=== PATIENT | male | born 1995 | race African-American/Black ===

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

== ENCOUNTER 2017-11-20 02:07 | Emergency (ER) | payer SELFPAY ==
[~2017-11-20] VITALS: Ht 166.4 cm; Wt 79.4 kg
[~2017-11-20 02:07] MED LIST changes: +FAMO-63 PO
[2017-11-20] MEDS ORDERED: PROAIR HFA8.5 GM INH (03:28)
[2017-11-20] MEDS ORDERED: PRED20TA PO (03:28)
--- NOTE | 2017-11-20 03:29 | PHYS DOC ---
Past Medical History Past Medical History: Asthma Past Surgical History: Other Additional Past Surgical Histo: R wrist frx repair Alcohol Use: None Drug Use: None Adult General Chief Complaint Chief Complaint: Congestion HPI HPI 22-year-old male presents the emergency department with a chief complaint of cough. He states that yesterday in the middle of the day he started to have nasal congestion, dry cough. Today he states that he has a wheeze and is having asthma exacerbation. He states that he has a long history of asthma and multiple previous identical episodes of asthma exacerbation such as this. He denies any fevers. He denies any vomiting, abdominal pain. He denies any chest pain. He states that he feels as though his chest is congested. Review of Systems Review of Systems Constitutional: Denies fever Eyes: Denies change in visual acuity, redness, or eye pain Cardiovascular: No additional information not addressed in HPI GI: Denies abdominal pain, nausea, vomiting, bloody stools or diarrhea : Denies dysuria or hematuria Musculoskeletal: Denies back pain or joint pain Integument: Denies rash or skin lesions Neurologic: Denies headache, focal weakness or sensory changes Endocrine: Denies polyuria or polydipsia All other systems were reviewed and found to be within normal limits, except as documented in this note. Allergies Allergies Allergies Coded Allergies Type Severity Reaction Last Updated Verified No Known Drug Allergies 10/30/16 No Physical Exam Physical Exam GENERAL: Awake, alert, no acute distress HEAD/EYES: Normocephalic, EOMI ENT Airway patent, mucous membranes moist NECK: Supple, no meningismus, no swelling RESP: No respiratory distress, symmetrical expansion, bilateral end expiratory wheezing CV: Normal peripheral perfusion ABD/GI: Non distended SKIN: Warm, dry NEURO: Normal motor observed PSYCH: Cooperative, appropriate affect Current Patient Data Vital Signs Vital Signs Date Time Temp Pulse Resp B/P (MAP) Pulse Ox O2 Delivery O2 Flow Rate FiO2 11/20/17 02:30 98.8 83 20 116/68 (84) 97 Room Air 98.8 EKG EKG [] Radiology/Procedures Radiology/Procedures [] Impressions: Acute asthma exacerbation Seasonal allergies Course & Med Decision Making Course & Med Decision Making Pertinent Labs and Imaging studies reviewed. (See chart for details) [] Dragon Disclaimer Dragon Disclaimer This electronic medical record was generated, in whole or in part, using a voice recognition dictation system. Departure Departure Impression: Primary Impression: Acute asthma exacerbation Disposition: HOME, SELF-CARE Referrals: NO PCP (PCP) Patient Instructions: Asthma, Acute Bronchospasm Additional Instructions: SEE PRIMARY CARE DOCTOR LIST PROVIDED AND ESTABLISH WITH PRIMARY CARE DOCTOR Scripts Albuterol Sulfate (PROAIR HFA INHALER) 8.5 Gm Hfa.aer.ad 2 PUFF INH PRN Q6HRS PRN for SHORTNESS OF BREATH for 30 Days, #1 INHALER 0 Refills Prov: ISAIAS YANG DO 11/20/17 Prednisone (PREDNISONE) 20 Mg Tablet 20 MG PO DAILY for 5 Days, #5 TAB Prov: ISAIAS YANG DO 11/20/17 ISAIAS YANG DO Nov 20, 2017 03:29
[2017-11-20] MEDS: predniSONE 10 MG TABLET PO ONE (03:46)
[2017-11-20 03:57] VITALS: BP 119/63
[2017-11-20] MEDS: IPRATRPIUM/ALBUTEROL 0.5/2.5MG 3 ML NEBU. NEB ONE (04:00)
== END 2017-11-20 04:22 | disposition home or self-care (01) ==
LOC: ER 02:07
DX: J45.901 Unspecified asthma with (acute) exacerbation (principal)
CPT/HCPCS: 94640; 99283; J7512; J7620

== ENCOUNTER 2018-05-29 19:48 | Emergency (ER) | payer SELFPAY ==
[~2018-05-29] VITALS: Ht 167.6 cm; Wt 89.8 kg
[2018-05-29 19:48] VITALS: BP 129/60
[~2018-05-29 19:48] MED LIST changes: +ALBU2.5V8 INH; +PRED20TA PO
[2018-05-29 21:02] LABS: BILIRUBIN,URINE NEGATIVE (NEG); CLARITY,URINE CLEAR; COLOR,URINE YELLOW; NITRITE,URINE NEGATIVE (NEG); PROTEIN,URINE NEGATIVE (NEG-TRACE)
[2018-05-29 21:07] LABS: BACTERIA,URINE 0 /HPF (0-FEW); RBC,URINE 0 /HPF (0-2); SQUAMOUS EPITHELIAL CELL,UR FEW /LPF; WBC,URINE OCC /HPF (0-4)
[2018-05-29] MEDS: cefTRIAXone IM 250 MG VIAL IM ONE (21:36)
[2018-05-29] MEDS: AZITHROMYCIN 250 MG TABLET. PO ONE (21:36)
[2018-05-29] MEDS: metroNIDAZOLE 500 MG TABLET PO ONE (21:37)
--- NOTE | 2018-05-29 22:00 | PHYS DOC ---
Past Medical History Past Medical History: No Pertinent History, Asthma Past Surgical History: Other Additional Past Surgical Histo: R wrist frx repair Alcohol Use: None Drug Use: None Adult General Chief Complaint Chief Complaint: SEXUALLY TRANSMITTED DISEASE HPI HPI Patient is a 22 year old male who presents with STD concerns, patient states his had dysuria and yellow drainage from his penis for couple days. He would like to be treated. He was also complaining of his penis peeling off, I requested to evaluate the area, he declined. Review of Systems Review of Systems Constitutional: Denies fever or chills [] GI: Denies abdominal pain, nausea, vomiting, bloody stools or diarrhea [] : Reports dysuria, yellow discharge, concern for STDs, penile peeling, denies hematuria [] Musculoskeletal: Denies back pain or joint pain [] Integument: Denies rash or skin lesions [] Neurologic: Denies headache, focal weakness or sensory changes [] All other systems were reviewed and found to be within normal limits, except as documented in this note. Current Medications Current Medications Current Medications Medications (Trade) Dose Ordered Sig/Lucho Start Time Stop Time Status Last Admin Dose Admin Azithromycin (Zithromax) 1,000 mg 1X ONCE 05/29/18 21:00 05/29/18 21:01 DC 05/29/18 21:36 1,000 MG Ceftriaxone Sodium (Rocephin Im) 250 mg 1X ONCE 05/29/18 21:00 05/29/18 21:01 DC 05/29/18 21:36 250 MG Metronidazole (Flagyl) 2,000 mg 1X ONCE 05/29/18 21:00 05/29/18 21:01 DC 05/29/18 21:37 2,000 MG Allergies Allergies Allergies Coded Allergies Type Severity Reaction Last Updated Verified No Known Drug Allergies 10/30/16 No Physical Exam Physical Exam Constitutional: Well developed, well nourished, no acute distress, non-toxic appearance. [] Abdomen: Bowel sounds normal, soft, no tenderness, no masses, no pulsatile masses. [] male -deferred. Skin: Warm, dry, no erythema, no rash. [] Back: No tenderness, no CVA tenderness. [] Extremities: No tenderness, no cyanosis, no clubbing, ROM intact, no edema. [] Neurologic: Alert and oriented X 3, normal motor function, normal sensory function, no focal deficits noted. [] Psychologic: Affect normal, judgement normal, mood normal. [] Current Patient Data Vital Signs Vital Signs Date Time Temp Pulse Resp B/P (MAP) Pulse Ox O2 Delivery O2 Flow Rate FiO2 05/29/18 19:48 98.7 69 16 129/60 (83) 98 Room Air 98.7 Lab Values Laboratory Tests Test 05/29/18 20:49 Urine Collection Type Unknown Urine Color Yellow Urine Clarity Clear Urine pH 6.0 Urine Specific [place] >=1.030 Urine Protein Negative mg/dL (NEG-TRACE) Urine Glucose (UA) Negative mg/dL (NEG) Urine Ketones (Stick) Trace mg/dL (NEG) Urine Blood Negative (NEG) Urine Nitrite Negative (NEG) Urine Bilirubin Negative (NEG) Urine Urobilinogen Dipstick 1.0 mg/dL (0.2 mg/dL) Urine Leukocyte Esterase Negative (NEG) Urine RBC 0 /HPF (0-2) Urine WBC Occ /HPF (0-4) Urine Squamous Epithelial Cells Few /LPF Urine Bacteria 0 /HPF (0-FEW) Urine Mucus Marked /LPF EKG EKG [] Radiology/Procedures Radiology/Procedures [] Course & Med Decision Making Course & Med Decision Making Pertinent Labs and Imaging studies reviewed. (See chart for details) This is a 22-year-old male patient presenting to the ED today with STD concerns. Patient was treated prophylaxis. Education provided. Dragon Disclaimer Dragon Disclaimer This electronic medical record was generated, in whole or in part, using a voice recognition dictation system. Departure Departure Impression: Primary Impression: Concern about STD in male without diagnosis Disposition: 01 HOME, SELF-CARE Condition: STABLE Referrals: NO PCP (PCP) Follow-up with your doctor in 1-2 weeks as needed Patient Instructions: Sexually Transmitted Disease Additional Instructions: You were treated prophylaxis for sexually transmitted diseases, please do not have sex for one week, use protection after that, contact all your sex partners , let them know you were treated for STDs and ask them to seek treatment too JACK SAMS APRN May 29, 2018 22:00
== END 2018-05-29 22:25 | disposition home or self-care (01) ==
LOC: ER 19:48
DX: N48.89 Other specified disorders of penis (principal); R30.0 Dysuria; Z20.2 Contact with and (suspected) exposure to infections with a predominantly sexual mode of transmission; J45.909 Unspecified asthma, uncomplicated
CPT/HCPCS: 81001; 96372; 99283; J0696; Q0144; 87491; 87591

== ENCOUNTER 2018-05-31 20:13 | Emergency (ER) | payer SELFPAY ==
[~2018-05-31] VITALS: Ht 165.1 cm; Wt 79.4 kg
[2018-05-31 20:43] LABS: BILIRUBIN,URINE NEGATIVE (NEG); CLARITY,URINE CLEAR; COLOR,URINE YELLOW; NITRITE,URINE NEGATIVE (NEG); PH,URINE 5.5; PROTEIN,URINE NEGATIVE (NEG-TRACE); UROBILINOGEN,URINE 0.2 mg/dL (0.2 mg/dL)
[2018-05-31 20:45] VITALS: BP 125/66
[2018-05-31 20:50] LABS: BACTERIA,URINE 0 /HPF (0-FEW); RBC,URINE 0 /HPF (0-2); SQUAMOUS EPITHELIAL CELL,UR FEW /LPF; WBC,URINE 0 /HPF (0-4)
[2018-05-31] MEDS ORDERED: fentaNYL PF VIAL 100 MCG/2 ML VIAL IV ONE (21:45)
[2018-05-31] MEDS ORDERED: ONDANSETRON PF 4 MG/2 ML VIAL. IV ONE (21:45)
[2018-05-31] MEDS ORDERED: IV NORMAL SALINE 1000ML BAG 1,000 ML IV SCH (21:45)
[2018-05-31 22:10] LABS: BASO % 0 % (0-3); EOS # 0.1 x10^3/uL (0.0-0.7); EOS % 2 % (0-3); HEMATOCRIT 44.1 % (39.0-53.0); HEMOGLOBIN 15.2 g/dL (13.0-17.5); LYMPH # 1.5 x10^3/uL (1.0-4.8); LYMPH % 18 % (24-48); MEAN CORPUSCULAR HEMOGLOBIN 29 pg (25-35); MEAN CORPUSCULAR HGB CONC 35 g/dL (31-37); MEAN CORPUSCULAR VOLUME 85 fL (79-100); MONO # 0.8 x10^3/uL (0.0-1.1); MONO % 9 % (0-9); NEUT # 6.3 x10^3uL (1.8-7.7); NEUT % 71 % (31-73); PLATELET COUNT 249 x10^3/uL (140-400); RED BLOOD COUNT 5.19 x10^6/uL (4.30-5.70); RED CELL DISTRIBUTION WIDTH 13.7 % (11.5-14.5); WHITE BLOOD COUNT 8.8 x10^3/uL (4.0-11.0)
[2018-05-31 22:18] LABS: CALCIUM 9.2 mg/dL (8.5-10.1); CREATININE 1.1 mg/dL (0.7-1.3); GFR 103.3; POTASSIUM 3.7 mmol/L (3.5-5.1)
[2018-05-31 22:25] LABS: TOTAL BILIRUBIN 0.6 mg/dL (0.2-1.0)
[2018-05-31 22:27] LABS: INFLUENZA A PATIENT NEGATIVE (NEGATIVE); INFLUENZA B PATIENT NEGATIVE (NEGATIVE)
[2018-05-31] MEDS ORDERED: ONDA4TAB12 PO (22:47)
--- NOTE | 2018-05-31 22:47 | PHYS DOC ---
Past Medical History Past Medical History: No Pertinent History, Asthma (SOLIS TOMLINSON APRN) Past Surgical History: Other Additional Past Surgical Histo: R wrist frx repair (SOLIS TOMLINSON APRN) Alcohol Use: None Drug Use: None (SOLIS TOMLINSON APRN) Adult General Chief Complaint Chief Complaint: ABDOMINAL PAIN HPI HPI Patient is a 22 year old male who presents with eye Last night and began vomiting that started early this morning. Patient states he does have a cough that also will cause him to gag and vomit. Patient is vomiting up bile. Patient denies pain at this time but states every now and then he does have cramping that comes and goes in his abdomen. Patient states the cramping is in his epigastric area. Patient currently rates his pain a 0 out of 10. (SOLIS TOMLINSON APRN) Review of Systems Review of Systems Constitutional: Denies fever or chills [] Eyes: Denies change in visual acuity, redness, or eye pain [] HENT: Denies nasal congestion or sore throat [] Respiratory: Denies cough or shortness of breath [] Cardiovascular: No additional information not addressed in HPI [] GI: epigastric abdominal pain, nausea, vomiting, denies bloody stools or diarrhea [] : Denies dysuria or hematuria [] Musculoskeletal: Denies back pain or joint pain [] Integument: Denies rash or skin lesions [] Neurologic: Denies headache, focal weakness or sensory changes [] All other systems were reviewed and found to be within normal limits, except as documented in this note. (SOLIS TOMLINSON APRN) Current Medications Current Medications Current Medications Medications (Trade) Dose Ordered Sig/Lucho Start Time Stop Time Status Last Admin Dose Admin Fentanyl Citrate (Fentanyl 2ml Vial) 50 mcg 1X ONCE 05/31/18 21:45 05/31/18 21:46 DC 05/31/18 22:13 50 MCG Ondansetron HCl (Zofran) 4 mg 1X ONCE 05/31/18 21:45 05/31/18 21:46 DC 05/31/18 22:13 4 MG Sodium Chloride 1,000 ml @ 1,000 mls/hr Q1H 05/31/18 21:45 05/31/18 22:44 DC 05/31/18 22:11 1,000 MLS/HR (BIANCA REYNOSO MD) Allergies Allergies Allergies Coded Allergies Type Severity Reaction Last Updated Verified No Known Drug Allergies 10/30/16 No (BIANCA REYNOSO MD) Physical Exam Physical Exam Constitutional: Well developed, well nourished, no acute distress, non-toxic appearance. [] HENT: Normocephalic, atraumatic, bilateral external ears normal, oropharynx moist, no oral exudates, nose normal. [] Eyes: PERRLA, EOMI, conjunctiva normal, no discharge. [] Neck: Normal range of motion, no tenderness, supple, no stridor. [] Cardiovascular:Heart rate regular rhythm, no murmur [] Lungs & Thorax: Bilateral breath sounds clear to auscultation [] Abdomen: Bowel sounds normal, soft, no tenderness, no masses, no pulsatile masses. [] Skin: Warm, dry, no erythema, no rash. [] Back: No tenderness, no CVA tenderness. [] Extremities: No tenderness, no cyanosis, no clubbing, ROM intact, no edema. [] Neurologic: Alert and oriented X 3, normal motor function, normal sensory function, no focal deficits noted. [] Psychologic: Affect normal, judgement normal, mood normal. Normal Physical exam[] (SOLIS TOMLINSON APRN) Current Patient Data Vital Signs Vital Signs Date Time Temp Pulse Resp B/P (MAP) Pulse Ox O2 Delivery O2 Flow Rate FiO2 05/31/18 23:00 52 16 100 Room Air 05/31/18 21:15 05/31/18 20:45 98.3 98.3 (BIANCA REYNOSO MD) Lab Values Laboratory Tests Test 05/31/18 20:20 05/31/18 22:00 Urine Collection Type Unknown Urine Color Yellow Urine Clarity Clear Urine pH 5.5 Urine Specific [place] >=1.030 Urine Protein Negative mg/dL (NEG-TRACE) Urine Glucose (UA) Negative mg/dL (NEG) Urine Ketones (Stick) Negative mg/dL (NEG) Urine Blood Negative (NEG) Urine Nitrite Negative (NEG) Urine Bilirubin Negative (NEG) Urine Urobilinogen Dipstick 0.2 mg/dL (0.2 mg/dL) Urine Leukocyte Esterase Negative (NEG) Urine RBC 0 /HPF (0-2) Urine WBC 0 /HPF (0-4) Urine Squamous Epithelial Cells Few /LPF Urine Bacteria 0 /HPF (0-FEW) Urine Mucus Marked /LPF White Blood Count 8.8 x10^3/uL (4.0-11.0) Red Blood Count 5.19 x10^6/uL (4.30-5.70) Hemoglobin 15.2 g/dL (13.0-17.5) Hematocrit 44.1 % (39.0-53.0) Mean Corpuscular Volume 85 fL (79-100) Mean Corpuscular Hemoglobin 29 pg (25-35) Mean Corpuscular Hemoglobin Concent 35 g/dL (31-37) Red Cell Distribution Width 13.7 % (11.5-14.5) Platelet Count 249 x10^3/uL (140-400) Neutrophils (%) (Auto) 71 % (31-73) Lymphocytes (%) (Auto) 18 % (24-48) L Monocytes (%) (Auto) 9 % (0-9) Eosinophils (%) (Auto) 2 % (0-3) Basophils (%) (Auto) 0 % (0-3) Neutrophils # (Auto) 6.3 x10^3uL (1.8-7.7) Lymphocytes # (Auto) 1.5 x10^3/uL (1.0-4.8) Monocytes # (Auto) 0.8 x10^3/uL (0.0-1.1) Eosinophils # (Auto) 0.1 x10^3/uL (0.0-0.7) Basophils # (Auto) 0.0 x10^3/uL (0.0-0.2) Sodium Level 143 mmol/L (136-145) Potassium Level 3.7 mmol/L (3.5-5.1) Chloride Level 105 mmol/L (98-107) Carbon Dioxide Level 30 mmol/L (21-32) Anion Gap 8 (6-14) Blood Urea Nitrogen 9 mg/dL (8-26) Creatinine 1.1 mg/dL (0.7-1.3) Estimated GFR (Cockcroft-Gault) 103.3 BUN/Creatinine Ratio 8 (6-20) Glucose Level 96 mg/dL (70-99) Calcium Level 9.2 mg/dL (8.5-10.1) Total Bilirubin 0.6 mg/dL (0.2-1.0) Aspartate Amino Transferase (AST) 16 U/L (15-37) Alanine Aminotransferase (ALT) 14 U/L (16-63) L Alkaline Phosphatase 65 U/L (46-116) Total Protein 8.0 g/dL (6.4-8.2) Albumin 4.0 g/dL (3.4-5.0) Albumin/Globulin Ratio 1.0 (1.0-1.7) Lipase 73 U/L (73-393) Influenza Type A Antigen Negative (NEGATIVE) Influenza Type B Antigen Negative (NEGATIVE) Laboratory Tests 05/31/18 22:00 Laboratory Tests 05/31/18 22:00 (BIANCA REYNOSO MD) EKG EKG [] (SOLIS TOMLINSON APRN) Radiology/Procedures Radiology/Procedures [] (SOLIS TOMLINSON APRN) Course & Med Decision Making Course & Med Decision Making Patient is a 22 year old male who presents with eye Last night and began vomiting that started early this morning. Patient states he does have a cough that also will cause him to gag and vomit. Patient is vomiting up bile. Patient denies pain at this time but states every now and then he does have cramping that comes and goes in his abdomen. Patient states the cramping is in his epigastric area. Patient currently rates his pain a 0 out of 10. Alert and oriented. Speaks in full clear sentences. Mucus membranes are moist. Abdomen is soft and nontender. Vital signs are within normal limits. Afebrile. She has no peripheral edema. He is ambulatory with steady gait. Patient denies chest pain, shortness of air, abdominal pain or diarrhea, fever. Blood work is unremarkable. Urine shows no infection or dehydration. Rapid influenza is negative. Patient is discharged home with nausea and vomiting and I 'll send him home with a prescription for nausea. Patient to push fluids and to follow-up with his primary care provider if needed. (SOLIS TOMLINSON APRN) Course & Med Decision Making Staff Physician Addendum: I was working in the ER during the course of this patient's visit. I was available for consultation as needed, but I was not directly involved in the care of this patient. (BIANCA REYNOSO MD) Dragon Disclaimer Dragon Disclaimer This electronic medical record was generated, in whole or in part, using a voice recognition dictation system. (SOLIS TOMLINSON APRN) Departure Departure Impression: Primary Impression: Nausea & vomiting Disposition: 01 HOME, SELF-CARE Condition: STABLE Referrals: NO PCP (PCP) Patient Instructions: Nausea and Vomiting Additional Instructions: Drink plenty of fluids. Take medication as prescribed. Follow primary care doctor Scripts Ondansetron (ONDANSETRON ODT) 4 Mg Tab.rapdis 1 TAB PO PRN Q6-8HRS, #20 TAB Prov: SOLIS TOMLINSON APRN 05/31/18 Problem Qualifiers Primary Impression: Nausea & vomiting Vomiting type: unspecified Vomiting Intractability: unspecified Qualified Codes: R11.2 - Nausea with vomiting, unspecified SOLIS TOMLINSON APRN May 31, 2018 22:47 BIANCA REYNOSO MD Jun 09, 2018 17:03
--- NOTE | 2018-06-01 02:20 | RAD ---
PA and lateral chest radiographs 05/31/2018 Clinical History: Cough. PA and lateral digital radiographs of the chest were obtained. No previous studies are available for comparison. The cardiac and mediastinal silhouettes are within normal limits in size and configuration. No pulmonary infiltrate is seen. No pleural effusion or pneumothorax is noted. Mild S-shaped curvature of the thoracolumbar spine is seen. Impression: No acute abnormality is seen. Electronically signed by: Meng Rico MD (06/01/2018 2:15 AM) [facility] [id number]
== END 2018-05-31 23:08 | disposition home or self-care (01) ==
LOC: ER 20:13
DX: R11.2 Nausea with vomiting, unspecified (principal); R10.13 Epigastric pain; R05 Cough; J45.909 Unspecified asthma, uncomplicated
CPT/HCPCS: 36415; 71046; 80053; 81001; 83690; 85025; 87804; 96361; 96374; 96375; 99284; J2405; J3010; J7030

== ENCOUNTER 2018-07-01 14:39 | Emergency (ER) | payer SELFPAY ==
[~2018-07-01] VITALS: Ht 165.1 cm; Wt 79.4 kg
[~2018-07-01 14:39] MED LIST changes: +ONDA4TAB12 PO
[2018-07-01 15:44] VITALS: BP 127/68
[2018-07-01] MEDS ORDERED: ALBU2.5V8 INH (15:45)
[2018-07-01] MEDS ORDERED: IPRATRPIUM/ALBUTEROL 0.5/2.5MG 3 ML NEBU. NEB ONE (15:45)
[2018-07-01] MEDS ORDERED: PRED50TA PO (15:45)
[2018-07-01] MEDS ORDERED: predniSONE 10 MG TABLET PO ONE (15:45)
--- NOTE | 2018-07-01 15:45 | PHYS DOC ---
Past Medical History Past Medical History: No Pertinent History, Asthma (OLE REY APRN) Past Surgical History: Other Additional Past Surgical Histo: R wrist frx repair (OLE REY APRN) Alcohol Use: None Drug Use: None (OLE REY APRN) Adult General Chief Complaint Chief Complaint: COUGH HPI HPI Patient is a 22 year old male presents for evaluation of wheezing, cough, shortness of breath associated with his asthma. He reports does not have any asthma medications are inhalers at home. Denies fevers. (OLE REY APRN) Review of Systems Review of Systems Constitutional: Denies fever or chills [] Eyes: Denies change in visual acuity, redness, or eye pain [] HENT: Denies nasal congestion or sore throat [] Respiratory: reports cough and shortness of breath [] Cardiovascular: No additional information not addressed in HPI [] GI: Denies abdominal pain, nausea, vomiting, bloody stools or diarrhea [] : Denies dysuria or hematuria [] Musculoskeletal: Denies back pain or joint pain [] Integument: Denies rash or skin lesions [] Neurologic: Denies headache, focal weakness or sensory changes [] Endocrine: Denies polyuria or polydipsia [] All other systems were reviewed and found to be within normal limits, except as documented in this note. (OLE REY APRN) Current Medications Current Medications Current Medications Medications (Trade) Dose Ordered Sig/Lucho Start Time Stop Time Status Last Admin Dose Admin Albuterol/ Ipratropium (Duoneb) 3 ml 1X ONCE 07/01/18 15:45 07/01/18 15:46 DC 07/01/18 15:53 3 ML Prednisone (Prednisone) 50 mg 1X ONCE 07/01/18 15:45 07/01/18 15:46 DC 07/01/18 16:04 50 MG (RENE ZAVALA MD) Allergies Allergies Allergies Coded Allergies Type Severity Reaction Last Updated Verified No Known Drug Allergies 10/30/16 No (RENE ZAVALA MD) Physical Exam Physical Exam Constitutional: Well developed, well nourished, no acute distress, non-toxic appearance. [] Cardiovascular:Heart rate regular rhythm, no murmur [] Lungs & Thorax: Bilateral breath sounds mild inspiratory wheeze [] Skin: Warm, dry, no erythema, no rash. [] Extremities: No tenderness, no cyanosis, no clubbing, ROM intact, no edema. [] Neurologic: Alert and oriented X 3, normal motor function, normal sensory function, no focal deficits noted. [] Psychologic: Affect normal, judgement normal, mood normal. [] (OLE REY APRN) Current Patient Data Vital Signs Vital Signs Date Time Temp Pulse Resp B/P (MAP) Pulse Ox O2 Delivery O2 Flow Rate FiO2 07/01/18 15:53 98 Room Air 07/01/18 15:44 98.5 54 18 127/68 (87) 98.5 (RENE ZAVALA MD) EKG EKG [] (OLE REY APRN) Radiology/Procedures Radiology/Procedures [] (OLE REY APRN) Course & Med Decision Making Course & Med Decision Making Pertinent Labs and Imaging studies reviewed. (See chart for details) []Patient received nebulizer treatment and prednisone in emergency room, resolution of symptoms, prescription for prednisone and albuterol inhaler. Follow-up with primary care doctor. (OLE REY APRN) Course & Med Decision Making I was available for consultation regarding this patient's care. I did not see or evaluate the patient unless otherwise specified. (RENE ZAVALA MD) Dragon Disclaimer Dragon Disclaimer This electronic medical record was generated, in whole or in part, using a voice recognition dictation system. (OLE REY APRN) Departure Departure Impression: Primary Impression: Asthma Disposition: 01 HOME, SELF-CARE Condition: STABLE Referrals: NO PCP (PCP) Patient Instructions: Asthma, Adult, [id number] Scripts Albuterol Sulfate (PROAIR HFA INHALER) 8.5 Gm Hfa.aer.ad 2 PUFF INH PRN Q6HRS PRN for SHORTNESS OF BREATH, #1 INHALER 0 Refills Prov: OLE REY APRN 07/01/18 Prednisone (PREDNISONE) 50 Mg Tablet 1 TAB PO DAILY, #5 TAB Prov: OLE REY APRN 07/01/18 Problem Qualifiers Primary Impression: Asthma Asthma severity: mild Asthma persistence: intermittent Asthma complication type: with acute exacerbation Qualified Codes: J45.21 - Mild intermittent asthma with (acute) exacerbation OLE REY STEAM SETTER Jul 01, 2018 15:45 RENE ZAVALA MD Jul 01, 2018 17:55
== END 2018-07-01 16:07 | disposition home or self-care (01) ==
LOC: ER 14:39
DX: J45.21 Mild intermittent asthma with (acute) exacerbation (principal)
CPT/HCPCS: 94640; 99283; J7512; J7620

== ENCOUNTER 2018-12-24 09:19 | Emergency (ER) | payer SELFPAY ==
[~2018-12-24] VITALS: Ht 166.4 cm; Wt 89.8 kg
[~2018-12-24 09:19] MED LIST changes: +PRED50TA PO
[2018-12-24 09:35] VITALS: BP 143/72
--- NOTE | 2018-12-24 09:36 | PHYS DOC ---
Past Medical History Past Medical History: No Pertinent History, Asthma Past Surgical History: Other Additional Past Surgical Histo: R wrist frx repair Alcohol Use: None Drug Use: None Adult General Chief Complaint Chief Complaint: SEXUALLY TRANSMITTED DISEASE HPI HPI Patient is a 23 year old male patient who presents to the ED today requesting STD treatment. Patient has no symptoms. He states the girlfriend was diagnosed with Trichomonas a couple days ago. Review of Systems Review of Systems Constitutional: Denies fever or chills [] : Denies dysuria or hematuria [] Request for STD treatment Musculoskeletal: Denies back pain or joint pain [] Integument: Denies rash or skin lesions [] Neurologic: Denies headache, focal weakness or sensory changes [] All other systems were reviewed and found to be within normal limits, except as documented in this note. Allergies Allergies Allergies Coded Allergies Type Severity Reaction Last Updated Verified No Known Drug Allergies 10/30/16 No Physical Exam Physical Exam Constitutional: Well developed, well nourished, no acute distress, non-toxic appearance. [] Abdomen: Bowel sounds normal, soft, no tenderness, no masses, no pulsatile masses. [] Skin: Warm, dry, no erythema, no rash. [] Back: No tenderness, no CVA tenderness. [] Extremities: No tenderness, no cyanosis, no clubbing, ROM intact, no edema. [] Neurologic: Alert and oriented X 3, normal motor function, normal sensory function, no focal deficits noted. [] Psychologic: Affect normal, judgement normal, mood normal. [] EKG EKG [] Radiology/Procedures Radiology/Procedures [] Course & Med Decision Making Course & Med Decision Making Pertinent Labs and Imaging studies reviewed. (See chart for details) Patient was provided standard STD treatment. Education on return precautions provided. Dragon Disclaimer Dragon Disclaimer This electronic medical record was generated, in whole or in part, using a voice recognition dictation system. Departure Departure Impression: Primary Impression: Concern about STD in male without diagnosis Disposition: 01 HOME, SELF-CARE Condition: STABLE Referrals: NO PCP (PCP) Follow-up with the health department Patient Instructions: Sexually Transmitted Disease Additional Instructions: You were treated for sexually transmitted diseases. Use protection at all times. Follow-up with the health department further STD concerns. Do not have sex for one week. JACK SAMS APRN Dec 24, 2018 09:36
[2018-12-24] MEDS ORDERED: AZITHROMYCIN 250 MG TABLET. PO ONE (09:45)
[2018-12-24] MEDS ORDERED: cefTRIAXone IM 250 MG VIAL IM ONE (09:45)
[2018-12-24] MEDS ORDERED: metroNIDAZOLE 500 MG TABLET PO ONE (09:45)
[2018-12-24 10:27] LABS: BILIRUBIN,URINE NEGATIVE (NEG); CLARITY,URINE CLEAR; COLOR,URINE YELLOW; NITRITE,URINE NEGATIVE (NEG); PH,URINE 8.5; PROTEIN,URINE NEGATIVE (NEG-TRACE); UROBILINOGEN,URINE 0.2 mg/dL (0.2 mg/dL)
[2018-12-24 10:40] LABS: BACTERIA,URINE 0 /HPF (0-FEW); RBC,URINE OCC /HPF (0-2); SQUAMOUS EPITHELIAL CELL,UR OCC /LPF; WBC,URINE OCC /HPF (0-4)
== END 2018-12-24 10:12 | disposition home or self-care (01) ==
LOC: ER 09:19
DX: Z20.2 Contact with and (suspected) exposure to infections with a predominantly sexual mode of transmission (principal); J45.909 Unspecified asthma, uncomplicated
CPT/HCPCS: 81001; 87491; 87591; 96372; 99284; J0696; Q0144

== ENCOUNTER 2019-05-03 11:23 | Emergency (ER) | payer SELFPAY ==
[~2019-05-03] VITALS: Ht 165.1 cm; Wt 77.0 kg
[2019-05-03 11:35] VITALS: BP 111/54
--- NOTE | 2019-05-03 12:20 | PHYS DOC ---
Past Medical History Past Medical History: No Pertinent History, Asthma (SOLIS TOMLINSON INTERNET SALES CONSULTANT) Past Surgical History: Other Additional Past Surgical Histo: R wrist frx repair (SOLIS TOMLINSON INTERNET SALES CONSULTANT) Smoking Status: Current Every Day Smoker Alcohol Use: None Drug Use: None (SOLIS TOMLINSON INTERNET SALES CONSULTANT) Adult General Chief Complaint Chief Complaint: CHEST WALL PAIN [facility] HPI Patient is a 23 year old male who presents with left chest pain that is sharp and shooting at times. Patient states he awoke 3 days ago with this pain. 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 Patient states that hurts when moving his left arm and with palpation to the area. Patient denies smoking, vaping, shortness of air, dizziness, headache, fever, cough, weakness, nausea, vomiting, abdominal pain, numbness or tingling. Patient states he has not been taking anything for the pain or symptoms. Patient rates pain 9 out of 10. (SOLIS TOMLINSON INTERNET SALES CONSULTANT) Review of Systems Review of Systems Constitutional: Denies fever or chills [] Eyes: Denies change in visual acuity, redness, or eye pain [] HENT: Denies nasal congestion or sore throat [] Respiratory: Denies cough or shortness of breath [] Cardiovascular: No additional information not addressed in HPI [] GI: Denies abdominal pain, nausea, vomiting, bloody stools or diarrhea [] : Denies dysuria or hematuria [] Musculoskeletal: Denies back pain or joint pain. reproduciable chest wall pain. [] Integument: Denies rash or skin lesions [] Neurologic: Denies headache, focal weakness or sensory changes [] Endocrine: Denies polyuria or polydipsia [] All other systems were reviewed and found to be within normal limits, except as documented in this note. (SOLIS TOMLINSON INTERNET SALES CONSULTANT) Allergies Allergies Allergies Coded Allergies Type Severity Reaction Last Updated Verified No Known Drug Allergies 10/30/16 No (BIANCA REYNOSO MD) Physical Exam Physical Exam Constitutional: Well developed, well nourished, no acute distress, non-toxic appearance. [] HENT: Normocephalic, atraumatic, bilateral external ears normal, oropharynx moist, no oral exudates, nose normal. [] Eyes: PERRLA, EOMI, conjunctiva normal, no discharge. [] Neck: Normal range of motion, no tenderness, supple, no stridor. [] Cardiovascular:Heart rate regular rhythm, no murmur. Left chest wall pain that is reproducible. [] Lungs & Thorax: Bilateral breath sounds clear to auscultation [] Abdomen: Bowel sounds normal, soft, no tenderness, no masses, no pulsatile masses. [] Skin: Warm, dry, no erythema, no rash. [] Back: No tenderness, no CVA tenderness. [] Extremities: No tenderness, no cyanosis, no clubbing, ROM intact, no edema. [] Neurologic: Alert and oriented X 3, normal motor function, normal sensory function, no focal deficits noted. [] Psychologic: Affect normal, judgement normal, mood normal. [] (SOLIS TOMLINSON APRN) Current Patient Data Vital Signs Vital Signs Date Time Temp Pulse Resp B/P (MAP) Pulse Ox O2 Delivery O2 Flow Rate FiO2 05/03/19 11:35 98.2 63 13 111/54 (73) 98 Room Air 98.2 (BIANCA REYNOSO MD) EKG EKG [] (SOLIS TOMLINSON APRN) Radiology/Procedures Radiology/Procedures [] (SOLIS TOMLINSON APRN) Course & Med Decision Making Course & Med Decision Making Pertinent Labs and Imaging studies reviewed. (See chart for details) Lungs are clear to auscultation all lobes. Pain is reproducible with palpation t o the area and with movement of the left arm. Skin pink warm and dry. Ambulatory to steady gait. Alert and oriented. Speaks in full clear sentences. Vital signs within normal limits. PERC negative. Patient's only past medical history is asthma. This is likely chest wall pain. Patient to follow up with a primary care physician and to take Ibupfrofen. [] (SOLIS TOMLINSON APRN) Course & Med Decision Making Staff Physician Addendum: I was working in the ER during the course of this patient's visit. I was available for consultation as needed, but I was not directly involved in the ca re of this patient. (BIANCA REYNOSO MD) Dragon Disclaimer Dragon Disclaimer This electronic medical record was generated, in whole or in part, using a voice recognition dictation system. (SOLIS TOMLINSON APRN) Departure Departure Impression: Primary Impression: Chest wall pain Additional Impression: Encounter for medical screening examination Disposition: HOME, SELF-CARE Condition: STABLE Referrals: NO PCP (PCP) Patient Instructions: Chest Wall Pain, [id number] Additional Instructions: Follow up with primary care provider. Take Ibuprofen 600mg every 6 hours for pain. Also try a heating pad 20 minutes on and off. Problem Qualifiers SOLIS TOMLINSON APRN May 03, 2019 12:20 BIANCA REYNOSO MD May 04, 2019 06:36
== END 2019-05-03 12:34 | disposition home or self-care (01) ==
LOC: ER 11:23
DX: R07.89 Other chest pain (principal); J45.909 Unspecified asthma, uncomplicated; F17.200 Nicotine dependence, unspecified, uncomplicated; Z98.890 Other specified postprocedural states
CPT/HCPCS: 99281

== ENCOUNTER 2019-08-03 12:25 | Emergency (ER) | payer SELFPAY ==
[~2019-08-03] VITALS: Ht 167.6 cm; Wt 77.8 kg
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
[2019-08-03] MEDS ORDERED: IBUP-1007 PO (14:10)
[2019-08-03 14:21] VITALS: BP 108/63
== END 2019-08-03 14:21 | disposition home or self-care (01) ==
LOC: ER 12:25
DX: M79.641 Pain in right hand (principal); R60.0 Localized edema; J45.909 Unspecified asthma, uncomplicated; F17.210 Nicotine dependence, cigarettes, uncomplicated; Z98.890 Other specified postprocedural states
CPT/HCPCS: 29125; 73130; 99283

== ENCOUNTER 2020-07-26 11:59 | Emergency (ER) | payer SELFPAY ==
[~2020-07-26] VITALS: Ht 167.6 cm; Wt 79.0 kg
[~2020-07-26 11:59] MED LIST changes: +IBUP-1007 PO
[2020-07-26 12:45] VITALS: BP 111/58
[2020-07-26 13:19] LABS: BILIRUBIN,URINE NEGATIVE (NEG); CLARITY,URINE CLEAR; COLOR,URINE YELLOW; NITRITE,URINE NEGATIVE (NEG); PH,URINE 5.5 (<5.0-8.0); PROTEIN,URINE NEGATIVE (NEG-TRACE); UROBILINOGEN,URINE 0.2 mg/dL (0.2 mg/dL)
[2020-07-26 13:24] LABS: BACTERIA,URINE FEW /HPF (0-FEW)
[2020-07-26] MEDS ORDERED: DOXY100C14 PO (13:34)
--- NOTE | 2020-07-26 13:35 | PHYS DOC ---
Past Medical History Past Medical History: No Pertinent History, Asthma, Bronchitis Past Surgical History: Other Additional Past Surgical Histo: R wrist frx repair Smoking Status: Current Every Day Smoker Alcohol Use: None Drug Use: None General Adult EDM: Chief Complaint: SEXUALLY TRANSMITTED DISEASE HPI: HPI: Patient is a 25 year old male who presents with 2 weeks of tingling at the tip of his penis. Patient states he does not know of any of his sexual partners have had any STDs. He denies any discharge or urinary symptoms. He denies any abdominal pain. He denies fever. Has a history of asthma and bronchitis. Review of Systems: Review of Systems: Constitutional: Denies fever or chills. [] Eyes: Denies change in visual acuity. [] HENT: Denies nasal congestion or sore throat. [] Respiratory: Denies cough or shortness of breath. [] Cardiovascular: Denies chest pain or edema. [] GI: Denies abdominal pain, nausea, vomiting, bloody stools or diarrhea. [] : Denies dysuria. + Tingling of tip of penis [] Musculoskeletal: Denies back pain or joint pain. [] Integument: Denies rash. [] Neurologic: Denies headache, focal weakness or sensory changes. [] Endocrine: Denies polyuria or polydipsia. [] Lymphatic: Denies swollen glands. [] Psychiatric: Denies depression or anxiety. [] Heart Score: C/O Chest Pain: No Risk Factors: Risk Factors: DM, Current or recent (<one month) smoker, HTN, HLP, family history of CAD, obesity. Risk Scores: Score 0 - 3: 2.5% MACE over next 6 weeks - Discharge Home Score 4 - 6: 20.3% MACE over next 6 weeks - Admit for Clinical Observation Score 7 - 10: 72.7% MACE over next 6 weeks - Early Invasive Strategies Current Medications: Current Medications Medications (Trade) Dose Ordered Sig/Lucho Start Time Stop Time Status Last Admin Dose Admin Azithromycin (Zithromax) 1,000 mg 1X ONCE 07/26/20 13:30 07/26/20 13:31 Allergies: Allergies: Allergies Coded Allergies Type Severity Reaction Last Updated Verified No Known Drug Allergies 10/30/16 No Physical Exam: PE: Constitutional: Well developed, well nourished, no acute distress, non-toxic appearance. [] HENT: Normocephalic, atraumatic, bilateral external ears normal, oropharynx moist, no oral exudates, nose normal. [] Eyes: PERRLA, EOMI, conjunctiva normal, no discharge. [] Neck: Normal range of motion, no tenderness, supple, no stridor. [] Cardiovascular:Heart rate regular rhythm, no murmur [] Lungs & Thorax: Bilateral breath sounds clear to auscultation [] Abdomen: Bowel sounds normal, soft, no tenderness, no masses, no pulsatile masses. [] Skin: Warm, dry, no erythema, no rash. [] Back: No tenderness, no CVA tenderness. [] Extremities: No tenderness, no cyanosis, no clubbing, ROM intact, no edema. [] Neurologic: Alert and oriented X 3, normal motor function, normal sensory function, no focal deficits noted. [] Psychologic: Affect normal, judgement normal, mood normal. Normal physical exam [] Current Patient Data: Labs: Laboratory Tests Test 07/26/20 13:00 Urine Collection Type Unknown Urine Color Yellow Urine Clarity Clear Urine pH 5.5 (<5.0-8.0) Urine Specific [place] 1.025 (1.000-1.030) Urine Protein Negative mg/dL (NEG-TRACE) Urine Glucose (UA) 250 mg/dL (NEG) Urine Ketones (Stick) Negative mg/dL (NEG) Urine Blood Negative (NEG) Urine Nitrite Negative (NEG) Urine Bilirubin Negative (NEG) Urine Urobilinogen Dipstick 0.2 mg/dL (0.2 mg/dL) Urine Leukocyte Esterase Small (NEG) Urine RBC 1-2 /HPF (0-2) Urine WBC 11-20 /HPF (0-4) Urine Squamous Epithelial Cells Few /LPF Urine Bacteria Few /HPF (0-FEW) Urine Mucus Marked /LPF Vital Signs: Vital Signs Date Time Temp Pulse Resp B/P (MAP) Pulse Ox O2 Delivery O2 Flow Rate FiO2 07/26/20 12:45 98.3 62 18 111/58 (75) 99 Room Air 98.3 EKG: EKG: [] Radiology/Procedures: Radiology/Procedures: [] Course & Med Decision Making: Course & Med Decision Making Pertinent Labs and Imaging studies reviewed. (See chart for details) See HPI. Alert and oriented x4. Ambulatory with a steady gait. Speaks in full clear sentences. Abdomen is soft and nontender. No penile sores or discharge seen. No testicular pain. Patient is treated with azithromycin and will be sent home with doxycycline. [] Payton Disclaimer: Payton Disclaimer: This electronic medical record was generated, in whole or in part, using a voice recognition dictation system. Departure Departure Impression: Primary Impression: Sexually transmissible disease Disposition: HOME / SELF CARE / HOMELESS Condition: STABLE Referrals: NO PCP (PCP) Patient Instructions: Sexually Transmitted Disease Additional Instructions: Take all all medication until it is gone and tell all sexual partners that you have been treated. Take medication with food and as directed. Scripts Doxycycline Monohydrate (DOXYCYCLINE MONOHYDRATE) 100 Mg Capsule 1 CAP PO BID, #14 CAP Prov: SOLIS TOMLINSON APRN 07/26/20 SOLIS TOMLINSON APRN July 26, 2020 13:35
[2020-07-26] MEDS: AZITHROMYCIN 250 MG TABLET. PO ONE (13:50)
== END 2020-07-26 13:54 | disposition home or self-care (01) ==
LOC: ER 11:59
DX: A64 Unspecified sexually transmitted disease (principal); J45.909 Unspecified asthma, uncomplicated; F17.200 Nicotine dependence, unspecified, uncomplicated
CPT/HCPCS: 81001; 87086; 87491; 87591; 99283

== ENCOUNTER 2020-09-22 23:25 | Emergency (ER) | payer SELFPAY ==
[~2020-09-22] VITALS: Ht 165.1 cm; Wt 78.1 kg
[~2020-09-22 23:25] MED LIST changes: +DOXY-181 PO
[2020-09-23 00:03] VITALS: BP 124/70
--- NOTE | 2020-09-23 00:20 | PHYS DOC ---
Past Medical History Past Medical History: No Pertinent History, Asthma, Bronchitis Past Surgical History: Other Additional Past Surgical Histo: R wrist frx repair Smoking Status: Current Every Day Smoker Alcohol Use: None Drug Use: None General Adult EDM: Chief Complaint: ABDOMINAL PAIN HPI: HPI: Patient is a 25 year old male presents with a chief complaint of nausea vomiting diarrhea and abdominal discomfort. Patient states this evening he ate some [employer]. Approximately 2 hours later at 1800 hrs. started to have nausea vomiting and then diarrhea. Patient states abdominal pain is diffuse described as crampy. Patient denies any runny nose stuffy nose cough or congestion. Review of Systems: Review of Systems: Review of systems: Constitutional symptoms- No fever, no chills. Eyes- No Discharge, No Visual Loss Respiratory symptoms- No shortness of breath, No wheezing, No Dyspnea on Exertion Cardiovascular Systems; No chest pain, No Palpitations, No syncope Gastrointestinal symptoms: Positive abdominal pain, Positive nausea, Positive vomiting Positive diarrhea. Genitourinary symptoms: No dysuria. Musculoskeletal symptoms: No back pain No extremity pain. NEUROLOGICAL Symptoms: No headache, no generalized weakness; No focal Weakness Skin: No rash. Heart Score: C/O Chest Pain: N/A Risk Factors: Risk Factors: DM, Current or recent (<one month) smoker, HTN, HLP, family history of CAD, obesity. Risk Scores: Score 0 - 3: 2.5% MACE over next 6 weeks - Discharge Home Score 4 - 6: 20.3% MACE over next 6 weeks - Admit for Clinical Observation Score 7 - 10: 72.7% MACE over next 6 weeks - Early Invasive Strategies Current Medications: Current Medications Medications (Trade) Dose Ordered Sig/Lucho Start Time Stop Time Status Last Admin Dose Admin Sodium Chloride 1,000 ml @ 1,000 mls/hr 1X ONCE 09/23/20 00:30 09/23/20 01:29 09/23/20 00:17 1,000 MLS/HR Allergies: Allergies: Allergies Coded Allergies Type Severity Reaction Last Updated Verified No Known Drug Allergies 10/30/16 No Physical Exam: PE: General: alert, no acute distress. Skin: warm, dry and intact. HENT: bilateral external ears normal, oropharynx moist, nose normal. Head:: Normocephalic, atraumatic. Neck: Trachea midline. Eyes: EOMI, Normal conjunctiva, No drainage CARDIOVASCULAR: Regular rate and rhythm RESPIRATORY: No respiratory distress Back: Full range of motion. Skin: Warm, dry, no erythema, no rash. MUSCULOSKELETAL: Full range of motion of bilateral upper and lower extremities. GASTROINTESTINAL: Abdomen soft without rebound or guarding. NEUROLOGICAL: Alert and noted to person, place and time. No neurological deficits observed Psychiatric: Cooperative. Normal judgment EKG: EKG: [] Radiology/Procedures: Radiology/Procedures: [] Course & Med Decision Making: Course & Med Decision Making Pertinent Labs and Imaging studies reviewed. (See chart for details) [] Patient was evaluated for chief complaint. Work-up consisted of laboratory analysis. Treatment included IV fluids Zofran and Toradol. Patient with suspected gastroenteritis. Will discharge patient home with Zofran. Payton Disclaimer: Payton Disclaimer: This electronic medical record was generated, in whole or in part, using a voice recognition dictation system. Departure Departure Impression: Primary Impression: Nausea & vomiting Additional Impressions: Vomiting and diarrhea Gastroenteritis Disposition: HOME / SELF CARE / HOMELESS Condition: STABLE Referrals: NO PCP (PCP) Patient Instructions: Viral Gastroenteritis Scripts Ondansetron Hcl (ZOFRAN) 4 Mg Tablet 1 TAB PO Q6HRS, #20 TAB Prov: GERA FERREIRA DO 09/23/20 GERA FERREIRA DO Sep 23, 2020 00:20
[2020-09-23 00:28] LABS: BASO % 0 % (0-3); EOS % 0 % (0-3); HEMATOCRIT 48.1 % (39.0-53.0); HEMOGLOBIN 16.8 g/dL (13.0-17.5); LYMPH # 0.9 x10^3/uL (1.0-4.8); LYMPH % 7 % (24-48); MEAN CORPUSCULAR HEMOGLOBIN 30 pg (25-35); MEAN CORPUSCULAR HGB CONC 35 g/dL (31-37); MEAN CORPUSCULAR VOLUME 86 fL (79-100); MONO # 0.5 x10^3/uL (0.0-1.1); MONO % 4 % (0-9); NEUT # 10.8 x10^3/uL (1.8-7.7); NEUT % 89 % (31-73); PLATELET COUNT 283 x10^3/uL (140-400); WHITE BLOOD COUNT 12.2 x10^3/uL (4.0-11.0)
[2020-09-23] MEDS ORDERED: IV NORMAL SALINE 1000ML BAG 1,000 ML IV ONE (00:30)
[2020-09-23 00:36] LABS: CREATININE 1.1 mg/dL (0.7-1.3); GFR 100.4; POTASSIUM 3.7 mmol/L (3.5-5.1)
[2020-09-23 00:41] LABS: ALBUMIN 3.6 g/dL (3.4-5.0); ALBUMIN/GLOBULIN RATIO 1.2 (1.0-1.7); TOTAL BILIRUBIN 1.2 mg/dL (0.2-1.0); TOTAL PROTEIN 6.6 g/dL (6.4-8.2)
[2020-09-23] MEDS ORDERED: ONDANSETRON PF 4 MG/2 ML VIAL. IVP ONE (00:45)
[2020-09-23] MEDS ORDERED: KETOROLAC 30 MG/ML VIAL. IVP ONE (00:45)
[2020-09-23 00:59] LABS: % LYMPHS 8 % (24-48); % MONOS 2 % (0-10); % SEGS 90 % (35-66); PLT ESTIMATE ADEQUATE (ADEQUATE)
[2020-09-23] MEDS ORDERED: ONDA4TAB7 PO (01:03)
== END 2020-09-23 02:53 | disposition home or self-care (01) ==
LOC: ER 23:25
DX: K52.9 Noninfective gastroenteritis and colitis, unspecified (principal); J45.909 Unspecified asthma, uncomplicated; F17.200 Nicotine dependence, unspecified, uncomplicated
CPT/HCPCS: 36415; 80053; 83690; 85007; 85025; 96361; 96374; 96375; 99284; J1885; J2405; J7030